=== PATIENT | female | born 1985 | race Two or more races ===

== ENCOUNTER 2019-12-07 16:07 | Emergency (ER) | payer MEDICAID, OTHER ==
[~2019-12-07] VITALS: Ht 157.5 cm; Wt 75.7 kg
[2019-12-07 17:05] LABS: Basophils # (auto) 0.1 10 ^3/uL (0-0.2); Basophils % (auto) 0.8 % (0.0-2.0); Eosinophils # (auto) 0.1 10 ^3/uL (0-0.8); Eosinophils % (auto) 1.7 % (0.0-7.0); Hematocrit 40.5 % (36.0-46.0); Hemoglobin 13.5 g/dL (12.2-16.2); Lymphocytes # (auto) 2.1 10 ^3/uL (0.4-5.4); Lymphocytes % (auto) 28.8 % (10.0-50.0); Mean Corpuscular Hemoglobin 30.3 pg (28.0-32.0); Mean Corpuscular Hgb Conc. 33.3 g/dL (32.0-36.0); Mean Corpuscular Volume 90.9 fL (80.0-100.0); Monocytes # (auto) 0.6 10 ^3/uL (0-1.3); Monocytes % (auto) 8.3 % (0.0-12.0); Neutrophils # (auto) 4.5 10 ^3/uL (1.6-8.6); Neutrophils % (auto) 60.4 % (37.0-80.0); Nucleated Red Blood Cells % 0.1 %; Platelet Count (auto) 283 10^3/uL (140-450); Red Blood Cells 4.46 10^6/uL (4.0-5.20); Red Cell Distribution Width 13.5 % (11.8-14.3); White Blood Cell 7.4 10^3/uL (4.4-10.8)
[2019-12-07 17:08] VITALS: BP 112/61
[2019-12-07 17:23] LABS: Urine Bacteria FEW /hpf (None Seen); Urine Blood TRACE /uL (Negative); Urine Mucus FEW (None Seen); Urine Specific Gravity 1.016 (1.001-1.035); Urine WBC 7 /hpf (0 - 5)
[2019-12-07 17:25] LABS: Albumin 3.9 g/dL (3.4-5.0); Anion Gap 7 (5-15); Blood Urea Nitrogen 9 mg/dL (7-18); Calcium 8.8 mg/dL (8.5-10.1); Carbon Dioxide 24 mmol/L (21-32); Chloride 107 mmol/L (98-107); Glucose 77 mg/dL (74-106); Potassium 3.7 mmol/L (3.5-5.1); Sodium 138 mmol/L (136-145)
[2019-12-07 17:32] LABS: Alanine Aminotransferase 23 U/L (13-56); Alkaline Phosphatase 80 U/L (45-117); Aspartate Aminotransferase 15 U/L (15-37); BUN/Creatinine Ratio 13.2; Bilirubin, Total 0.3 mg/dL (0.2-1.0); GFR African American 127 mL/min; GFR Non-African American 105 mL/min; Total Protein 7.9 g/dL (6.4-8.2)
== END 2019-12-07 17:49 | disposition home or self-care (01) ==
LOC: ER 16:07
DX: F41.9 Anxiety disorder, unspecified (principal); N39.0 Urinary tract infection, site not specified; M79.602 Pain in left arm; M79.605 Pain in left leg
CPT/HCPCS: 36415; 70450; 80053; 81001; 84484; 85025; 93971

== ENCOUNTER 2024-01-21 10:34 | Inpatient (IN) | payer MEDICAID, OTHER ==
[~2024-01-21] VITALS: Ht 154.9 cm; Wt 83.9 kg
[2024-01-21] MEDS ORDERED: BUTORPHANOL TARTRATE 2 MG/1 ML VIAL IV PRN ×2 (11:00)
[2024-01-21] MEDS ORDERED: LIDOCAINE 2%HCL (LOCAL ANESTH.) INJ 20ML MDV IJ PRN (11:00)
[2024-01-21] MEDS: LACTATED RINGER'S 1,000 ML IV SCH (11:19)
[2024-01-21 11:31] LABS: Urine Bacteria FEW /hpf (None Seen); Urine Blood Negative /uL (Negative); Urine Clarity Clear (Clear); Urine Color Light-Yellow (Yellow); Urine Mucus FEW (None Seen); Urine Protein, UAD TRACE (Negative); Urine Urobilinogen Normal (Negative); Urine WBC 2 /hpf (0 - 5)
[2024-01-21 11:32] LABS: Basophils # (auto) 0 10 ^3/uL (0-0.2); Basophils % (auto) 0.3 % (0.0-2.0); Eosinophils # (auto) 0.1 10 ^3/uL (0-0.8); Eosinophils % (auto) 0.6 % (0.0-7.0); Hematocrit 32.8 % (36.0-46.0); Hemoglobin 10.9 g/dL (12.2-16.2); Lymphocytes # (auto) 2.1 10 ^3/uL (0.4-5.4); Lymphocytes % (auto) 17.6 % (10.0-50.0); Mean Corpuscular Hemoglobin 27.7 pg (28.0-32.0); Mean Corpuscular Hgb Conc. 33.2 g/dL (32.0-36.0); Mean Corpuscular Volume 83.5 fL (80.0-100.0); Monocytes # (auto) 0.9 10 ^3/uL (0-1.3); Monocytes % (auto) 7.6 % (0.0-12.0); Neutrophils # (auto) 8.7 10 ^3/uL (1.6-8.6); Neutrophils % (auto) 73.9 % (37.0-80.0); Platelet Count (auto) 268 10^3/uL (140-450); Red Blood Cells 3.92 10^6/uL (4.0-5.20); Red Cell Distribution Width 15.7 % (11.8-14.3); White Blood Cell 11.7 10^3/uL (4.4-10.8)
[2024-01-21 11:47] LABS: Albumin 3.8 g/dL (3.2-4.8); Alkaline Phosphatase 254 U/L (46-116); Anion Gap 10 (5-15); Aspartate Aminotransferase 18 U/L (13-40); Bilirubin, Total 0.4 mg/dL (0.2-1.0); Blood Urea Nitrogen 8 mg/dL (9-23); Calcium 9.3 mg/dL (8.7-10.4); Carbon Dioxide 20 mmol/L (20-31); Chloride 107 mmol/L (98-107); Glucose 88 mg/dL (74-106); INR 0.89 (0.9-1.15); Partial Thromboplastin Time 23.5 SEC (24.5-34.5); Prothrombin Time 9.5 sec (9.3-11.8); Sodium 137 mmol/L (136-145); Total Protein 6.5 g/dL (5.7-8.2)
[2024-01-21 11:48] LABS: Amphetamine Screen, Urine Neg (NEGATIVE)
[2024-01-21 11:50] LABS: Barbiturate Scree,Urine Neg (NEGATIVE); Benzodiazephine Screen, Urine Neg (NEGATIVE); Cannabinoid Screen, Urine Neg (NEGATIVE); Cocaine Screen, Urine Neg (NEGATIVE); Opiate Scree,Urine Neg (NEGATIVE); Phencyclidine Screen, Urine Neg (NEGATIVE)
[2024-01-21 11:50] LABS: Alanine Aminotransferase < 9 U/L (7-40)
[2024-01-21] MEDS: LACT. RINGERS/OXYTOCIN 20UNITS 500 ML IV ONE ×2 (12:16)
[2024-01-21] MEDS: DERMOPLAST 60ML BOTTLE TOP PRN (12:33)
[2024-01-21] MEDS: WITCH HAZEL-GLYCERIN PAD TOP PRN (12:33)
[2024-01-21] MEDS: PHISODERM TOP SOLN 240ML BTL TOP PRN (12:33)
[2024-01-21] MEDS: KETOROLAC TROMETH 30 MG/ML 1ML VIAL IV ONE (12:33)
--- NOTE | 2024-01-21 13:03 | DVHHP2 ---
OB CC & HPI Date Date of Admission: Jan 21, 2024 Patient Identification: EDC: Jan 29, 2024 EGA: 38.6wks Chief Complaints: Reason for admission: active labor History of Present Complaints 38yo IUP@38.6wks presents in active labor. Pt reports UCs Q2 min that started this morning at 0840. Denies LOF/VB/MCKAY/vision changes/RUQ pain. Endorses +FM. PNC: Routine PNC at [facility], adequate visits, PNC uncomplicated. GTT wnl, dating based on LMP c/w 17wk sono, GBS negative. OB hx: x3, uncomplicated. Second baby weighed 9lbs 1oz. Past Medical History Cardiac: No pertinent Hx Pulmonary: No pertinent Hx Central Nervous System: No pertinent Hx GI: No pertinent Hx Hemotology/Oncology: No pertinent Hx Hepatobiliary: No pertinent Hx Psychiatric: No pertinent Hx Musculoskeletal: No pertinent Hx Rheumotologic: No pertinent Hx Infectious Disease: No peritnent Hx ENT: No pertinent Hx Renal/: No pertinent Hx Endocrine: No pertinent Hx Dermatology: No pertinent Hx Past Surgical History: No pertinent Hx OB History OB History Care: Good Care Ultrasounds: Normal mid trimester US Obstetrical Complications: None Medical Complications: None Allergies: Coded Allergies: NO KNOWN ALLERGIES (Unverified , 12/07/19) Allergies NKDA Home Meds PNV Current Medications Current Medications Medications (Trade) Dose Ordered Sig/Juan Route PRN Reason Start Time Stop Time Status Last Admin Lactated Ringer's 1,000 ml @ 125 mls/hr Q8H IV 01/21/24 11:00 01/21/24 11:19 Arnie Wdadell (Tucks) 1 pad PRN PRN TOP PERINEAL AREA DISCOMFORT 01/21/24 11:00 01/21/24 12:33 Sodium Lauryl Sulfate (Phisoderm) 240 ml PRN PRN TOP PERINEAL AREA DISCOMFORT 01/21/24 11:00 01/21/24 12:33 Benzocaine (Dermoplast) 1 applic PRN PRN TOP PERINEAL AREA DISCOMFORT 01/21/24 11:00 01/21/24 12:33 Butorphanol Tartrate (Stadol Injection) 1 mg Q4HPRN PRN IV MODERATE PAIN (4-6 PAIN SCALE) 01/21/24 11:00 Butorphanol Tartrate (Stadol Injection) 2 mg Q4HPRN PRN IV SEVERE PAIN (7-10 PAIN SCALE) 01/21/24 11:00 Lidocaine HCl (Xylocaine) 20 ml ONCE PRN IJ PERINEAL AREA DISCOMFORT 01/21/24 11:00 Family & Social History Family/Social History Past Family/Social History: denies Blood Type: O+ Rubella: immune RPR/VDRL: Negative GBS Status: Negative HBsAG: Negative Review of Systems Constitutional: No symptom reported Ears, Nose, & Throat: No symptom reported Eyes: No symptom reported Pulmonary/Respiratory: No symptom reported Cardiovascular: No symptom reported Gastrointestinal: No symptom reported Genitourinary: No symptom reported Musculoskeletal: No symptom reported Skin: No symptom reported Psychiatric: No symptom reported Endocrine: No symptom reported Hemotologic/Lymphatic: No symptom reported OB Admission Exam Physical Exam Vitals: VSS, see chart HEENT: TMs Normal, Fontanelles Normal, Nasal Mucosa Normal, Eyes non-injected, Oropharynx Normal, PERRLA, Moist Membranes, EOMI Heart: Rhythm Normal Lungs: Clear Abdomen: Gravid Extremities: Normal Reflexes: Normal Pelvic Exam: SVE by RN: /-1, BBOW Membranes: Intact Heart Rate: 120's Accelerations: Accelerations Present Decelerations: Variable Decelerations Manager Ccu Variability: Average (6-25) Contractions on Admission: < 5 Minutes Apart Intensity: Moderate OB Plan Plan Admitting Diagnosis: active labor Plan: Expectant Management Other Plan: A: 38yo IUP@38.6wks Active labor Category II EFM Intact Membranes GBS negative P: Admit to L&D Informed consent obtained Expectant management for now due to frequent UCs monitoring per order Intrauterine resuscitation done by RN Routine labs ordered Pain mgmt PRN Frequent position changes in and out of bed encouraged Limit SVE unless necessary Anticipate CNM will consult with KAMRYN Fontenot CNM Jan 21, 2024 13:03
--- NOTE | 2024-01-21 13:14 | LDN2 ---
Labor and Delivery Note Date 01/21/24 Age 38 4 Para 4 AB 0 EDC 01/29/24 EGA 38w6d Diagnosis Spontaneous labor, AROM (clear fluid) then precipitous Vaginal Delivery: VTX Vacuum Assisted: No Placenta: Spontaneous Sex: Female Weight in progress Apgars 8/9 Nuchal Cord Present: No Nuchal Cord Transected: No Amniotic Fluid: Clear Anesthesia n/a Episiotomy: No Extension: No Lacerations: Yes (1st degree prerineal with repair) Repaired with 3-0 vicryl EBL QBL 250mL Complications n/a Conditions stable Auriculotherapist Dr. Carlos Alberto Ray. Delivery Summary At 1202 this 38yo now delivered a viable Female infant by w/ APGARS 8/9. SILVANO. Cord clamped and cut after pulsing stopped. handed to mom/RN team. Cord blood sent. Intact 3-vessel cord placenta delivered spontaneously, Jluy. Vagina inspected and first degree perineal laceration present which was repaired with 3-0 vicryl suture. Patient had local anesthesia for repair. VSS. Fundus firm at U, midline, light lochia. QBL 250ml. Patient to care and baby to couplet care. JAS ACEVEDO [facility] Jan 21, 2024 13:14
[2024-01-21] MEDS ORDERED: ONDANSETRON ODT 4 MG TAB PO PRN (13:15)
[2024-01-21] MEDS: IBUPROFEN 600 MG TAB PO PRN (14:19)
[2024-01-21 15:00] VITALS: BP 111/57; PULSE 85; RESP 17; TEMP 98.6; O2SAT 99
[2024-01-21 18:40] VITALS: BP 114/65; PULSE 81; RESP 16; TEMP 98.1; O2SAT 98
[2024-01-21 23:00] VITALS: BP 132/64; PULSE 70; RESP 16; TEMP 98.4; O2SAT 98
[2024-01-22] MEDS: ACETAMINOPHEN 325 MG TAB PO PRN (00:13)
[2024-01-22] MEDS ORDERED: FER325T PO (02:46)
[2024-01-22] MEDS ORDERED: PREN-96 PO (02:46)
[2024-01-22] MEDS ORDERED: DOCU-94 PO (02:46)
[2024-01-22] MEDS ORDERED: IBU600T PO (02:46)
--- NOTE | 2024-01-22 02:48 | DVHDS2 ---
Obstetrics Discharge Summary Obstetrics Discharge Summary Date of Admission: Jan 21, 2024 Date of Discharge: Jan 22, 2024 Reason For Admission: Onset of Labor Procedures: NST Intrapartum Procedures: Spontaneous vaginal deliv Procedures: Hct/date: (01/22/24), Hgb/date: (01/22/24) Operative Complicat: Laceration (first degree perineal, repaired) Discharge Diagnosis: Term -Delivered Discharge Information: Activity (as tolerated, no heavy lifting and nothing in the vagina for 6 weeks), Diet (Routine), Medications (Rx sent), Instructions (Routine), Discharge to (Home), Accompanied by (family), Discarge date (01/22/24) KAMRYN MAE CNM Jan 22, 2024 02:48
--- NOTE | 2024-01-22 02:48 | DVHPN2 ---
Progress Note Date Seen: Jan 22, 2024 Subjective S: bleeding is less, eating food without issues, denies lightheaded/dizziness, pain well controlled with oral medications, no concerns with urinating, passing flatus, no BM yet, ambulating well, well vital signs Vital Sign Date Time Temp Pulse Resp B/P (MAP) Pulse Ox O2 Delivery O2 Flow Rate FiO2 01/21/24 23:00 98.4 70 16 132/64 (86) 98 98.4 01/21/24 19:00 Room Air Total Intake and Output 01/21/24 01/21/24 01/22/24 15:00 23:00 07:00 Output Total 2000 ml 800 ml Balance -2000 ml -800 ml medications Current Medications Medications Dose Ordered Sig/Juan Route Start Time Stop Time Status Last Admin Dose Admin Arnie Waddell 1 pad PRN PRN TOP 01/21/24 11:00 01/21/24 12:33 1 PAD Sodium Lauryl Sulfate 240 ml PRN PRN TOP 01/21/24 11:00 01/21/24 12:33 240 ML Benzocaine 1 applic PRN PRN TOP 01/21/24 11:00 01/21/24 12:33 1 APPLIC Butorphanol Tartrate 1 mg Q4HPRN PRN IV 01/21/24 11:00 Cancel Butorphanol Tartrate 2 mg Q4HPRN PRN IV 01/21/24 11:00 Cancel Lidocaine HCl 20 ml ONCE PRN IJ 01/21/24 11:00 Cancel Ibuprofen 600 mg Q6HP PRN PO 01/21/24 13:15 01/21/24 20:07 600 MG Acetaminophen 650 mg Q4HP PRN PO 01/21/24 13:15 01/22/24 00:13 650 MG Ondansetron HCl 4 mg Q4HPRN PRN PO 01/21/24 13:15 laboratory and microbiology Laboratory Tests 01/21/24 11:03 Test 01/21/24 11:03 Range/Units Serum Glucose 88 74-106 mg/dL Objective O: VSS Chest: heart sounds normal and lung sounds clear bilaterally Abd: soft, non-tender, fundus at U/firm/midline, active bowel sounds, no rebound or guarding Perineum: sutures intact, edges well approximated, no erythema/edema noted Ext: Non-tender, No edema, 2+ BLE DTRs Lochia: minimal See lab results Problems(with codes): (1) (normal spontaneous vaginal delivery) (2) First degree perineal laceration during delivery (3) Precipitous drop in hematocrit Assessment/Plan A: 38yo now PPD#1 s/p Anemia Rh+ Rubella Immune Pain control with PO medications Bowel regimen P: D/C home today Rx sent to pharmacy precautions and preeclampsia warning signs reviewed F/U with [facility] office in 2 weeks Plan discussed with: Patient KAMRYN MAE CNM Jan 22, 2024 02:48
[2024-01-22 03:00] VITALS: BP 137/70; PULSE 63; RESP 18; TEMP 98.6; O2SAT 100
[2024-01-22 07:00] VITALS: BP 129/79; PULSE 74; RESP 16; TEMP 98.3; O2SAT 98
[2024-01-22 07:06] LABS: RPR Non Reactive (Non Reactive)
[2024-01-22 09:25] LABS: Basophils # (auto) 0 10 ^3/uL (0-0.2); Eosinophils # (auto) 0 10 ^3/uL (0-0.8); Eosinophils % (auto) 0.4 % (0.0-7.0); Hemoglobin 9.6 g/dL (12.2-16.2); Lymphocytes # (auto) 1.8 10 ^3/uL (0.4-5.4); Mean Corpuscular Volume 84.3 fL (80.0-100.0); Monocytes # (auto) 0.7 10 ^3/uL (0-1.3)
[2024-01-22 09:27] LABS: Basophils % (auto) 0.3 % (0.0-2.0); Hematocrit 29.7 % (36.0-46.0); Lymphocytes % (auto) 15.6 % (10.0-50.0); Mean Corpuscular Hemoglobin 27.3 pg (28.0-32.0); Mean Corpuscular Hgb Conc. 32.4 g/dL (32.0-36.0); Monocytes % (auto) 6.3 % (0.0-12.0); Neutrophils # (auto) 9.1 10 ^3/uL (1.6-8.6); Neutrophils % (auto) 77.4 % (37.0-80.0); Platelet Count (auto) 231 10^3/uL (140-450); Red Blood Cells 3.52 10^6/uL (4.0-5.20); Red Cell Distribution Width 15.6 % (11.8-14.3); White Blood Cell 11.7 10^3/uL (4.4-10.8)
[2024-01-22 11:01] VITALS: BP 100/57; PULSE 79; RESP 16; TEMP 97.8; O2SAT 97
== END 2024-01-22 15:08 | disposition home or self-care (01) | DRG 560 ==
LOC: LDRP 10:34 → OBSVTOIN 10:50 → LDRP 15:57
PROVIDERS: ADMIT Obstetrics & Gynecology; ATTEND Obstetrics & Gynecology
PROC: 10E0XZZ Delivery of Products of Conception, External Approach (ICD-10-PCS; principal; 2024-01-21)
PROC: 0HQ9XZZ Repair Perineum Skin, External Approach (ICD-10-PCS; 2024-01-21)
PROC: 10907ZC Drainage of Amniotic Fluid, Therapeutic from Products of Conception, Via Natural or Artificial Opening (ICD-10-PCS; 2024-01-21)
DX: O70.0 First degree perineal laceration during delivery (principal); Z37.0 Single live birth; R71.0 Precipitous drop in hematocrit; Z3A.38 38 weeks gestation of pregnancy; O90.81 Anemia of the puerperium
CPT/HCPCS: 36415; 59025; 59409; 80053; 80307; 81001; 81002; 85025; 85610; 85730; 86592; 86703; 86803; 86850; 86900; 86901; 87340; 94760; 96360; 96365; 96366; 96374; G0378; J1885; J2590

== ENCOUNTER → 2024-04-10 | Outpatient (CLI) | payer MEDICAID ==
[~2024-04-10] MED LIST: DOCU-94 PO; FER325T PO; IBU600T PO; PREN-96 PO
== END | disposition home or self-care (01) ==
LOC: LAB 14:00
PROVIDERS: ATTEND Obstetrics & Gynecology
DX: R87.810 Cervical high risk human papillomavirus (HPV) DNA test positive (principal)